=== PATIENT | female | born 1980 | race Caucasian/White ===

== ENCOUNTER → 2017-01-21 | Outpatient (CLI) | payer BC ==
--- NOTE | 2017-01-21 15:55 | MR ---
MRI brain with and without contrast, MR C-spine without contrast HISTORY: G 93.5, G 40.9, Q85.00, headache Multiplanar multisequence imaging obtained through the cervical spine, multiplanar multisequence and postcontrast images obtained through the brain following 10 cc MultiHance IV correlated to prior brai n MRI January Cervical spine MRI: Cervical vertebral bodies show preserved height and alignment. Probable hemangiom a present at the inferior aspect of C3 vertebral body. Some loss of disc height and signal is present at C6-7, there is associated spondylosis. Loss of normal lordosis may be due to spasm. Cervical cord signal, cervical medullary junction are normal. No significant central canal stenosis. C6-7 shows posterior extension of endplate disc complex causing some mild anterior mass effect on the thecal sac, no significant foraminal encroachment. Remaining levels are normal, no other evident disc herniation or foraminal encroachment. There may be a thoracic scoliosis. IMPRESSION: Mild degenerative disc disease. There may be underlying spinal curvature. Brain MRI: There is no restricted diffusion to suggest subacute ischemia. There is no hemorrhage or h ydrocephalus. Punctate focus of hyperintensity in the deep white matter in the right parietal lobe on axial image 21 on inversion recovery and T2-weighted sequences of questionable clinical significance . The orbits mildly asymmetric appearance. There is apparent volume loss in the left orbit compared t o the right, the left lobe appears somewhat more posteriorly facet which may represent a congenital p henomenon. Left maxillary sinus is somewhat decreased in size as compared to right. Normal vascular e nhancement. Cerebellopontine angles, corpus callosum, pituitary, cervical medullary junction are norm al. Paranasal sinuses and mastoid air cells are within normal limits. 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 No significant brain abnormality is suspected. Additional fi ndings above.
== END | disposition home or self-care (01) ==
LOC: RADMRIMAIN 12:55
PROVIDERS: ATTEND Nurse Practitioner Acute Care
DX: G93.5 Compression of brain (principal); Q85.00 Neurofibromatosis, unspecified
CPT/HCPCS: 70553; 72141; A9577

== ENCOUNTER → 2018-04-26 | Outpatient (CLI) | payer BC ==
[2018-04-26 11:36] LABS: Basophils % (A) 0 %; Eosinophils % (A) 0 %; HCT 46.1 % (34.0-46.0); HGB 15.1 gm/dL (11.4-16.0); Lymphocytes # (A) 1.1 k/uL (1.0-4.8); Lymphocytes % (A) 20 %; MCH 29.8 pg (25.0-35.0); MCHC 32.8 g/dL (31.0-37.0); MCV 90.9 fL (80.0-100.0); Mean Platelet Volume 6.7; Monocytes # (A) 0.3 k/uL (0-1.0); Monocytes % (A) 6 %; Neutrophils # (A) 3.8 k/uL (1.3-7.7); Neutrophils % (A) 72 %; Platelet Count 385 k/uL (150-450); RBC 5.07 m/uL (3.80-5.40); RDW 12.8 % (11.5-15.5); WBC 5.2 k/uL (3.8-10.6)
== END | disposition home or self-care (01) ==
LOC: LABWHC1 10:49
PROVIDERS: ATTEND Obstetrics & Gynecology
DX: Z01.812 Encounter for preprocedural laboratory examination (principal)
CPT/HCPCS: 36415; 85025

== ENCOUNTER → 2018-05-09 | Day surgery (SDC) | payer BC ==
[2018-05-02 12:06] VITALS: BMI 21.0
[~2018-05-09] MED LIST: BUPIVACAINE (PF) 0.5% 30 ML VIAL SQ ONE; DEXAMETHASONE SOD PHOSPHATE 10 MG/ML 1 ML VIAL IV ONE; GLYCOPYRROLATE 0.2 MG/ML 2 ML VIAL ONE; KETOROLAC 30 MG/ML 1 ML VIAL ONE; LACTATED RINGERS 1,000 ML IV SCH; LIDOCAINE 1% 20 ML VIAL (10MG/ML) FOR IV START INTRADERMA PRN; LIDOCAINE 1% INJ 10MG/ML (20 ML MDV) ONE; MIDAZOLAM 2 MG/2 ML VIAL ONE; NEOSTIGMINE 1 MG/ML 10 ML VIAL ONE; ONDANSETRON 4 MG/2 ML VIAL IVP ONE; PROPOFOL 10 MG/ML 20 ML VIAL IV ONE; Pre Op ABX Message 1 EACH MISC MISCELLANE ONE; ROCURONIUM BROMIDE 10 MG/ML 10 ML VIAL IV ONE; SCOPOLAMINE 1.5MG/72HR PATCH TRANSDERM ONE; SUCCINYLCHOLINE CHLORIDE 100 MG/5 ML SYR IV ONE; fentaNYL (PF) 50 MCG/ML 2 ML AMP ONE
--- NOTE | 2018-05-09 10:20 | P.OP ---
Date of Procedure: 05/09/18 Preoperative Diagnosis: Undesired fertility Postoperative Diagnosis: Same, normal-appearing female pelvis Procedure(s) Performed: Laparoscopic tubal ligation with Filshie clips Anesthesia: JB Surgeon: Kirsten Thapa Estimated Blood Loss (ml): 15 IV fluids (ml): 500 Urine output (ml): 200 Pathology: none sent Condition: stable Disposition: PACU Description of Procedure: Patient is brought to the operating suite where general analgesic is administered. She's put in the dorsal lithotomy position. The cervix vagina perineum and abdomen are all prepped and draped in usual sterile fashion. The appropriate timeout is performed. Urine hCG is negative. Examination under anesthesia reveals a small anteverted uterus, negative adnexa bilaterally. Bladder is drained for approximately 200 mL of clear yellow urine. Speculum was placed into the vagina. Anterior lip of the cervix is grasped with an Allis clamp. Small acorn cannula is placed onto the cervix and attached to the Allis clamp, and the speculum is removed. Attention is now drawn to the abdominal wall. A small infraumbilical incision is made. Veress needle is placed and placement is checked with hanging drop technique. Abdomen is insufflated under low filling pressures of approximately 6-9 mmHg for a total of 4.0 L of CO2 gas. Veress needle is removed. The trocar is placed and the placement is noted to be atraumatic. A second incision is made suprapubically, a second trocar is placed under direct visualization and again the entrances atraumatic. Patient is now placed in Trendelenburg position. Uterus is brought into the field and the right fallopian tube is visualized in its entirety. Filshie clip is placed in the isthmic portion of the tube with care to traverse the entire diameter of the tube into the mesal salpinx. Ovary appears normal. The same procedure is carried out on the contralateral tube, again the fimbriated and is identified for proper placement, and the entire tube is traversed with the clip. Bilateral ovaries appear normal. There is no evidence of adhesions or endometriosis. Uterine surface appears smooth. CO2 gas was allowed to diffuse. Instruments are removed under direct visualization and the fascial defects are hemostatically intact. 4-0 Monocryl is used subcuticularly for final skin closure. The incisions are injected with half percent Marcaine without epinephrine for a total of 10 mL's. Steri-Strips and dressings are applied to the wounds. Instrumentation is removed from the vagina. The cervix is clean and dry. All sponge needle and enhancement counts are correct at the and of the procedure. Patient is brought back to recovery room in very good condition with stable vital signs including blood pressure 115/73, pulse 89, 98% O2 saturation. Patient will follow-up with me in the office in 2 weeks. Toradol is given prior to leaving the operative room.
[2018-05-09] MEDS: HYDROmorphone 0.5 MG/0.5 ML SYRINGE IVP PRN ×4 (10:36→10:59)
[2018-05-09 10:39] VITALS: TEMP 97.7
[2018-05-09 10:47] VITALS: RESP 16
[2018-05-09 12:36] VITALS: BP 115/77; PULSE 76
== END | disposition home or self-care (01) ==
LOC: OR 08:04
PROVIDERS: ATTEND Obstetrics & Gynecology
DX: Z30.2 Encounter for sterilization (principal); J45.909 Unspecified asthma, uncomplicated; G40.909 Epilepsy, unspecified, not intractable, without status epilepticus; G43.109 Migraine with aura, not intractable, without status migrainosus; Q85.00 Neurofibromatosis, unspecified; Z79.1 Long term (current) use of non-steroidal anti-inflammatories (NSAID); Z79.899 Other long term (current) drug therapy; Z88.8 Allergy status to other drugs, medicaments and biological substances; Z91.040 Latex allergy status
CPT/HCPCS: 81025; 58671; J2250; J1100; J2710; J2405; J2001; J3010; J1885; J0330; J2704; J1170